=== PATIENT | male | born 1980 | race Caucasian/White ===

== ENCOUNTER 2022-01-21 21:28 | Emergency (ER) | payer OTHER ==
[2022-01-21 21:36] VITALS: BP 131/70; PULSE 69; TEMP 98.2; BMI 27.3
[2022-01-22 00:55] LABS: BASO % 0.3 % (0-2.0); EOS % 5.1 % (0-4.5); HEMATOCRIT 42.5 % (35.4-49); HEMOGLOBIN 14.3 GM/dL (11.7-16.9); LYMPH % 21.2 % (8-40); MCH 29.7 pg (25.7-33.7); MCHC 33.7 g/dl (32.0-35.9); MEAN CELL VOLUME 87.9 fl (80-96); MEAN PLT VOLUME 8.8 fl (7.5-11.1); MONO % 11.1 % (3.8-10.2); NEUT % 62.3 % (42.8-82.8); PLATELET COUNT 161 10^3/uL (134-434); RBC 4.83 M/mm3 (4.00-5.60); RDW 14.9 % (11.9-15.9); WHITE BLOOD COUNT 7.3 K/mm3 (4.0-10.0)
[2022-01-22 01:15] LABS: CALCIUM 8.7 mg/dL (8.5-10.1)
[2022-01-22 01:16] LABS: ALBUMIN 3.9 g/dl (3.4-5.0); BLOOD UREA NITROGEN 10.2 mg/dL (7-18)
[2022-01-22 01:19] LABS: CREATININE 1.2 mg/dL (0.55-1.3)
[2022-01-22 01:20] LABS: BILIRUBIN,TOTAL 0.3 mg/dL (0.2-1); TOT PROT 7.2 g/dl (6.4-8.2)
== END 2022-01-22 01:45 | disposition left against medical advice (07) ==
LOC: JER 21:28 → JERFT 21:28 → JER 01-22 01:45
DX: R07.9 Chest pain, unspecified (principal)
CPT/HCPCS: 36415; 71046-TC-FY; 80053; 82550; 82553; 84484; 85025; 93005; 93010; 99285-25